=== PATIENT | female | born 1935 | race Caucasian/White ===

== ENCOUNTER 2022-05-17 10:27 | Emergency (ER) | payer OTHER ==
[~2022-05-17] VITALS: Ht 152.4 cm; Wt 46.7 kg
--- NOTE | 2022-05-17 10:45 | NUR ---
[id number],tripped and fall R wrist pain on air splint,zofran 4mg given by EMS. PT AAOX4, VSS. RR EVEN & UNLABORED. DENIES CP, SOB, DIZZINESS, N/V AT THIS TIME. DR. SAMAYOA @ BS FOR EVAL. WILL CONT TO MONITOR.
[2022-05-17] MEDS ORDERED: MORPHINE SULFATE INJ 2 MG/ML DISP.SYRIN IV ONE (11:00)
[2022-05-17] MEDS ORDERED: ONDANSETRON HCL/PF - ER 4 MG/2 ML VIAL IV ONE (11:00)
[2022-05-17] MEDS ORDERED: MORPHINE SULFATE INJ 2 MG/ML DISP.SYRIN ONE (11:12)
[2022-05-17] MEDS ORDERED: ONDANSETRON HCL/PF 4 MG/2 ML VIAL ONE (11:12)
--- NOTE | 2022-05-17 11:23 | NUR ---
MEDICATED PER ERMD ORDER, PT ZIGGY WELL. PT TO CT VIA KAR[facility].
--- NOTE | 2022-05-17 11:50 | NUR ---
SIGNED CONSENT FOR RIGHT RADIUS REDUCTION UNDER MODERATE SEDATION
[2022-05-17] MEDS ORDERED: PROPOFOL 20 ML IV ONE (11:54)
[2022-05-17] MEDS ORDERED: PROPOFOL 200 MG/20 ML VIAL IV ONE (12:00)
[2022-05-17] MEDS ORDERED: PROPOFOL 1,000 MG/100 ML BOTTLE IV ONE (13:00)
[2022-05-17] MEDS ORDERED: IBUP-1957 PO (13:08)
[2022-05-17] MEDS ORDERED: HYDR-4209 PO (13:08)
--- NOTE | 2022-05-17 13:31 | NUR ---
IV removed. Catheter intact and site benign. Pressure and 4x4 applied to site. No bleeding noted.Patient discharged to home in stable condition with family. Written and verbal after care instructions given. Patient verbalizes understanding of instruction.
[2022-05-17 13:55] VITALS: BP 159/88
== END 2022-05-17 13:50 | disposition home or self-care (01) ==
LOC: ER 10:32
DX: S52.511A Displaced fracture of right radial styloid process, initial encounter for closed fracture (principal); R51.9 Headache, unspecified; I10 Essential (primary) hypertension; Z79.899 Other long term (current) drug therapy; W18.09XA Striking against other object with subsequent fall, initial encounter; Y93.89 Activity, other specified; Y92.89 Other specified places as the place of occurrence of the external cause; Y99.8 Other external cause status
CPT/HCPCS: 25605; 99285; 99152; 73080; 73090; 73130; 72125; 70450; 73110 ×2; 96375; 96374; J2704; J2405; J7030; A6403; J2270; G0500